=== PATIENT | male | born 1990 | race Caucasian/White ===

== ENCOUNTER 2016-11-18 14:47 | Emergency (ER) | payer OTHER ==
[~2016-11-18] VITALS: Ht 188 cm; Wt 73.2 kg
[2016-11-18 14:48] VITALS: BP 116/67
[2016-11-18] MEDS ORDERED: AZITHROMYCIN 250 MG TAB PO ONE (15:15)
[2016-11-18] MEDS ORDERED: cefTRIAXone SOD 250 MG VIAL (J0696) IM ONE (15:15)
== END 2016-11-18 15:55 | disposition home or self-care (01) ==
LOC: M ED 14:47
DX: A54.9 Gonococcal infection, unspecified (principal); Z88.6 Allergy status to analgesic agent
CPT/HCPCS: 87491; 87591; 96372; 99282; J0696

== ENCOUNTER 2016-12-02 16:58 | Emergency (ER) | payer OTHER ==
[~2016-12-02] VITALS: Ht 188 cm; Wt 71.7 kg
[2016-12-02] MEDS ORDERED: PROP10TA56 (17:05)
[2016-12-02] MEDS ORDERED: AMOX500C (17:05)
[2016-12-02] MEDS ORDERED: SERO1TAB (17:05)
[2016-12-02] MEDS ORDERED: ACETAMINOPHEN TAB 650MG DOSE (2X325MG) PO ONE (18:15)
--- NOTE | 2016-12-02 18:46 | REP ---
Right hand four views: I suspect there is a fracture at the base of the fifth digit metacarpal. This should be correlated with clinical point tenderness. There is soft tissue edema dorsally. Mineralization and joint spaces are otherwise unremarkable. No calcifications or foreign bodies. Impression: Probable fracture at the base of the fifth digit metacarpal. Correlate with clinical point tenderness. Dorsal soft tissue edema. Signed by Alfonso Thompson MD 12/02/2016 06:38 P
[2016-12-02 20:10] VITALS: BP 125/74
== END 2016-12-02 20:25 | disposition home or self-care (01) ==
LOC: M ED 16:58
DX: S62.310A Displaced fracture of base of second metacarpal bone, right hand, initial encounter for closed fracture (principal); X58.XXXA Exposure to other specified factors, initial encounter; Y92.018 Other place in single-family (private) house as the place of occurrence of the external cause; Y93.89 Activity, other specified; Y99.8 Other external cause status; F90.9 Attention-deficit hyperactivity disorder, unspecified type; G47.00 Insomnia, unspecified; R00.0 Tachycardia, unspecified; Z88.8 Allergy status to other drugs, medicaments and biological substances; F17.210 Nicotine dependence, cigarettes, uncomplicated

== ENCOUNTER → 2017-01-07 | Outpatient (CLI) | payer OTHER ==
[~2017-01-07] MED LIST: AMOX500C; PROP10TA56; SERO1TAB
--- NOTE | 2017-01-07 11:59 | REP ---
CT of the right wrist: Comparison is the plain film study dated 12/02/2016. Axial images are acquired helical scanning and a reformatted sagittal coronal projections. There is a fiberglass cast. There is a fracture at the base of the index finger metacarpal laterally extending intraarticularly, not visible on the comparison plain film study. There is a fracture at the base of the middle finger extending intraarticularly, not visible on the comparison plain film study. There is a fracture at the base of the fifth digit metacarpal laterally, questionably intra-articular. There was identified on the comparison plain film study. Signed by Alfonso Thompson MD 01/07/2017 11:50 A
== END ==
LOC: M RAD 10:13
PROVIDERS: ATTEND Physician Assistant Surgical
DX: S62.346D Nondisplaced fracture of base of fifth metacarpal bone, right hand, subsequent encounter for fracture with routine healing (principal); X58.XXXD Exposure to other specified factors, subsequent encounter; Y93.9 Activity, unspecified; Y92.9 Unspecified place or not applicable; Y99.8 Other external cause status

== ENCOUNTER → 2018-08-24 | Outpatient (CLI) | payer OTHER ==
--- NOTE | 2018-08-24 14:41 | REP ---
Chest x-ray: Two views. History: Chest pain . Comparison study: No comparison study . Findings: The lungs are well inflated and free of infiltrate. The pleural angles are sharp. The heart size is normal. Pulmonary vasculature is not increased. No significant bony abnormality is seen. Impression: Negative chest x-ray. Electronically Signed by Leonel Anthony MD 08/24/2018 02:32 P
== END ==
LOC: M RAD 12:52
PROVIDERS: ATTEND Surgery
DX: R07.1 Chest pain on breathing (principal)

== ENCOUNTER → 2020-03-25 | Outpatient (CLI) | payer SELFPAY | LOC: M LABSMTC 13:41 | PROVIDERS: ATTEND Pediatrics | DX: Z11.59 Encounter for screening for other viral diseases (principal) ==

== ENCOUNTER 2023-01-02 23:38 | Emergency (ER) | payer OTHER, SELFPAY ==
[~2023-01-02] VITALS: Ht 185.4 cm; Wt 71.5 kg
[2023-01-03] MEDS ORDERED: IBUP-1022 PO (01:12)
[2023-01-03] MEDS ORDERED: IBUPROFEN 600MG TAB PO ONE (01:15)
[2023-01-03] MEDS ORDERED: ACETAMINOPHEN 500 MG TAB PO ONE (01:20)
[2023-01-03 01:21] VITALS: BP 159/74; TEMP 99.1; O2SAT 96
== END 2023-01-03 01:32 | disposition home or self-care (01) ==
LOC: M ED 23:38
DX: S40.022A Contusion of left upper arm, initial encounter (principal); S50.12XA Contusion of left forearm, initial encounter; Y92.410 Unspecified street and highway as the place of occurrence of the external cause; Y93.55 Activity, bike riding; Z88.6 Allergy status to analgesic agent; Z79.2 Long term (current) use of antibiotics; Z79.899 Other long term (current) drug therapy

== ENCOUNTER 2023-09-18 03:13 | Emergency (ER) | payer OTHER, SELFPAY ==
[~2023-09-18] VITALS: Ht 182.9 cm; Wt 65.9 kg
[~2023-09-18 03:13] MED LIST changes: +IBUP-1022 PO
[2023-09-18] MEDS ORDERED: MIDAZOLAM INJ 2MG/2ML VIAL IM STA (03:35)
[2023-09-18] MEDS ORDERED: HALOPERIDOL LACTATE 5MG/ML VIAL IM ONE (03:35)
[2023-09-18] MEDS ORDERED: diphenhydrAMINE 50MG/ML VIAL IM ONE (03:35)
[2023-09-18 04:21] LABS: HEMATOCRIT 44.7 % (42.0-52.0); HEMOGLOBIN 15.1 g/dl (13.5-17.5); MEAN CORPUSCULAR HEMOGLOBIN 28.8 pg (27.0-33.0); MEAN CORPUSCULAR HGB CONC 33.8 g/dl (32.0-36.5); MEAN CORPUSCULAR VOLUME 85.1 fl (80.0-96.0); PLATELET COUNT, AUTOMATED 161 10^3/uL (150-450); RED BLOOD COUNT 5.25 10^6/uL (4.30-6.10); WHITE BLOOD COUNT 16.2 10^3/uL (4.0-10.0)
[2023-09-18 04:49] LABS: ETHYL ALCOHOL (ETHANOL) < 0.003 % (0.000-0.010)
[2023-09-18 04:51] LABS: ALBUMIN 4.3 G/DL (3.2-5.2); ALKALINE PHOSPHATASE 54 U/L (46-116); ALT/SGPT 16 U/L (7.0-40); AST/SGOT 22 U/L (<34); BILIRUBIN,DIRECT 0.4 MG/DL (<0.4); BLOOD UREA NITROGEN 13 MG/DL (9-23); CALCIUM LEVEL 9.7 MG/DL (8.5-10.1); CARBON DIOXIDE LEVEL 26 MMOL/L (20-31); CHLORIDE LEVEL 109 MMOL/L (98-107); GLOMERULAR FILTRATION RATE > 60.0 (>60); GLUCOSE, FASTING 94 MG/DL (60-100); POTASSIUM SERUM 4.5 MMOL/L (3.5-5.1); SALICYLATE LEVEL < 3.0 MG/DL (<30); SODIUM LEVEL 141 MMOL/L (136-145); TOTAL PROTEIN 7.6 G/DL (5.7-8.2)
[2023-09-18 04:53] LABS: THYROID STIMULATING HORMONE 0.895 uIU/ML (0.55-4.78)
[2023-09-18 07:58] LABS: AMPHETAMINES LEVEL URINE NEGATIVE (NEGATIVE); BARBITURATES URINE NEGATIVE (NEGATIVE); BENZODIAZEPINES URINE NEGATIVE (NEGATIVE); COCAINE METABOLITE URINE NEGATIVE (NEGATIVE); METHADONE URINE NEGATIVE (NEGATIVE); OPIATES URINE NEGATIVE (NEGATIVE); PHENCYCLIDINE URINE NEGATIVE (NEGATIVE)
[2023-09-18 08:01] LABS: CANNABINOIDS URINE POSITIVE (NEGATIVE)
[2023-09-18 10:16] VITALS: BP 133/85; TEMP 97.9; O2SAT 99
== END 2023-09-18 10:19 | disposition home or self-care (01) ==
LOC: M ED 03:13
DX: F43.0 Acute stress reaction (principal); Z63.0 Problems in relationship with spouse or partner; R45.851 Suicidal ideations; F17.200 Nicotine dependence, unspecified, uncomplicated; F12.10 Cannabis abuse, uncomplicated; Z88.6 Allergy status to analgesic agent

== ENCOUNTER 2023-12-17 14:28 | Emergency (ER) | payer OTHER ==
[~2023-12-17] VITALS: Ht 185.4 cm; Wt 72.0 kg
[2023-12-17] MEDS ORDERED: IBUP-1022 PO (16:15)
[2023-12-17] MEDS ORDERED: METH-1165 PO (16:15)
[2023-12-17 16:28] VITALS: BP 100/60; TEMP 97.8; O2SAT 97
== END 2023-12-17 16:28 | disposition home or self-care (01) ==
LOC: M ED 14:28
DX: S39.012A Strain of muscle, fascia and tendon of lower back, initial encounter (principal); X50.0XXA Overexertion from strenuous movement or load, initial encounter; Y92.9 Unspecified place or not applicable; Y93.9 Activity, unspecified; Y99.9 Unspecified external cause status; Z88.6 Allergy status to analgesic agent

== ENCOUNTER 2024-11-28 07:57 | Emergency (ER) | payer OTHER ==
[~2024-11-28] VITALS: Ht 188 cm; Wt 75.0 kg
[~2024-11-28 07:57] MED LIST changes: +METH-1165 PO
[2024-11-28] MEDS: ACETAMINOPHEN 500 MG TAB PO ONE (08:20)
[2024-11-28 09:25] VITALS: BP 121/85; TEMP 97.9; O2SAT 98
== END 2024-11-28 09:35 | disposition home or self-care (01) ==
LOC: M ED 07:57 → EDBD 07:57 → M ED 09:35
DX: S63.522A Sprain of radiocarpal joint of left wrist, initial encounter (principal); Y92.410 Unspecified street and highway as the place of occurrence of the external cause; Y93.9 Activity, unspecified; Y99.9 Unspecified external cause status; F17.200 Nicotine dependence, unspecified, uncomplicated; Z88.6 Allergy status to analgesic agent